=== PATIENT | female | born 1985 | race Two or more races ===

== ENCOUNTER 2018-06-16 18:04 | Emergency (ER) | payer MEDICAID ==
[~2018-06-16] VITALS: Ht 160 cm; Wt 70.0 kg
[2018-06-16] MEDS ORDERED: ACETAMINOPHEN 325MG TABLET PO ONE (19:15)
[2018-06-16 19:37] VITALS: BP 131/98
== END 2018-06-16 19:36 | disposition home or self-care (01) ==
LOC: ER 18:04
DX: M25.562 Pain in left knee (principal); M25.561 Pain in right knee; V49.09XA Driver injured in collision with other motor vehicles in nontraffic accident, initial encounter; Y93.89 Activity, other specified; Y92.89 Other specified places as the place of occurrence of the external cause; Y99.8 Other external cause status
CPT/HCPCS: 99282; 99283